=== PATIENT | female | born 2000 | race Caucasian/White ===

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

== ENCOUNTER 2023-11-25 14:06 | Emergency (ER) | payer MEDICAID ==
[~2023-11-25] VITALS: Ht 170.2 cm; Wt 55.3 kg
[~2023-11-25 14:06] MED LIST changes: +LIDO20SO16 PO; +METH4TAB3 PO
[2023-11-25] MEDS ORDERED: CEPH-585 PO (15:27)
[2023-11-25 15:41] VITALS: BP 120/60; PULSE 80; RESP 16; TEMP 98.5; O2SAT 98
== END 2023-11-25 15:44 | disposition home or self-care (01) ==
LOC: ER 14:07
DX: S91.301A Unspecified open wound, right foot, initial encounter (principal); Z88.0 Allergy status to penicillin; Z88.1 Allergy status to other antibiotic agents; Z87.440 Personal history of urinary (tract) infections; W21.05XA Struck by basketball, initial encounter; Y93.67 Activity, basketball; Y92.89 Other specified places as the place of occurrence of the external cause; Y99.8 Other external cause status
CPT/HCPCS: 99283; A6222; A6258; L4360